=== PATIENT | male | born 1985 | race Asian ===

== ENCOUNTER 2017-12-08 03:56 | Emergency (ER) | payer OTHER ==
[~2017-12-08] VITALS: Ht 172.7 cm; Wt 66.7 kg
[2017-12-08 03:56] VITALS: BP_SYST 121
[2017-12-08 04:10] VITALS: BP_SYST 145
== END 2017-12-08 04:10 ==
LOC: SED 03:56
DX: Z02.89 Encounter for other administrative examinations (principal)